=== PATIENT | female | born 1990 | race African-American/Black ===

== ENCOUNTER 2024-07-11 00:05 | Emergency (ER) | payer MEDICAID ==
[~2024-07-11] VITALS: Ht 175.3 cm; Wt 109.0 kg
[2024-07-11 00:55] LABS: Basophils # (auto) 0.1 10 ^3/uL (0-0.2); Eosinophils # (auto) 0.3 10 ^3/uL (0-0.8); Monocytes # (auto) 0.8 10 ^3/uL (0-1.3)
[2024-07-11 00:57] LABS: Basophils % (auto) 0.5 % (0.0-2.0); Eosinophils % (auto) 2.1 % (0.0-7.0); Hematocrit 35.9 % (36.0-46.0); Hemoglobin 11.6 g/dL (12.2-16.2); Lymphocytes # (auto) 3.1 10 ^3/uL (0.4-5.4); Lymphocytes % (auto) 24.2 % (10.0-50.0); Mean Corpuscular Hemoglobin 26.2 pg (28.0-32.0); Mean Corpuscular Hgb Conc. 32.2 g/dL (32.0-36.0); Mean Corpuscular Volume 81.4 fL (80.0-100.0); Monocytes % (auto) 6.2 % (0.0-12.0); Neutrophils # (auto) 8.6 10 ^3/uL (1.6-8.6); Nucleated Red Blood Cells % 0.1 %; Platelet Count (auto) 327 10^3/uL (140-450); Red Blood Cells 4.41 10^6/uL (4.0-5.20); Red Cell Distribution Width 14.9 % (11.8-14.3); White Blood Cell 12.8 10^3/uL (4.4-10.8)
--- NOTE | 2024-07-11 01:12 | ED.PDOC ---
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 Patient is a , lidia roximately 5 weeks . States for the past 2 days she has been having vaginal spotting in mild abdominal cramping. Patient was seen at [facility] 2 days ago, diagnostics done, ultrasound done, was noted of UTI in the started on antibiotics. Persistence of vaginal spotting promptly patient to come back to the emergency room Chief Complaint: Vaginal Bleed Time Seen by MD: 01:11 Reviewed Notes: Nurses Notes Allergies: Coded Allergies: NO KNOWN ALLERGIES (Unverified , 05/17/11) Information Source: Patient Mode of Arrival: Ambulatory Timing: Hours Prehospital treatment: None Severity: Moderate Vaginal Discharge: None Bleeding Quality: Bright Red Onset Of Mass/Bleeding: Spontaneous Sexual Activity: History of: Current Associated Signs and Symptoms: Vaginal Bleeding, Abdominal Pain Past Medical History PAST MEDICAL HISTORY: Denies Surgical History: 3 Para 1 LMP 06/07/2024 Family History Family History: Unknown Social History Smoker: Non-Smoker Alcohol: Denies ETOH Use Drugs: Denies Drug Use Lives In: Home Constitutional: denies: chills, diaphoresis, fatigue, fever, malaise, sweats, weakness, others EENTM: denies: blurred vision, double vision, ear bleeding, ear discharge, ear drainage, ear pain, ear ringing, eye pain, eye redness, hearing loss, mouth pain, mouth swelling, nasal discharge, nose bleeding, nose congestion, nose pain , photophobia, tearing, throat pain, throat swelling, voice changes, others Respiratory: denies: cough, hemoptysis, orthopnea, SOB at rest, shortness of breath, SOB with excertion, stridor, wheezing, others Cardiovascular: denies: chest pain, dizzy spells, diaphoresis, Dyspnea on exertion, edema, irregular heart beat, left arm pain, lightheadedness, palpitations, PND, syncope, others Gastrointestinal: reports: abdominal pain; denies: abdomen distended, blood streaked bowels, constipated, diarrhea, dysphagia, difficulty swallowing, hematemesis, melena, nausea, poor appetite, poor fluid intake, rectal bleeding, rectal pain, vomiting, others Genitourinary: reports: abnormal vagina bleeding; denies: burning, dyspareunia, dysuria, flank pain, frequency, hematuria, incontinence, pain, , vagina discharge, urgency, others Neurological: denies: dizziness, fainting, headache, left sided numbness, left sided weakness, numbness, paresthesia, pre-existing deficit, right sided numbness, right sided weakness, seizure, speech problems, tingling, tremors, weakness, others Musculoskeletal: denies: back pain, gout, joint pain, joint swelling, muscle pain, muscle stiffness, neck pain, others Integumetry: denies: bruises, change in color, change in hair/nails, dryness, laceration, lesions, lumps, rash, wounds, others Allergic/Immunocompromised: denies: Difficulty Healing, Frequent Infections, Hives, Itching, others Hematologic/Lymphatic: denies: anemia, blood clots, easy bleeding, easy bruising, swollen glands, others Endocrine: denies: excessive hunger, excessive sweating, excessive thirst, excessive urination, flushing, intolerance to cold, intolerance to heat, unexplained weight gain, unexplained weight loss, others Psychiatric: denies: anxiety, bipolar disorder, depression, hopeless, panic disorder, schizophrenia, sleepless, suicidal, others Physical Exam General Appearance: No Apparent Distress, Normal HEENT: Normal ENT Inspection, Pharynx Normal, TMs Normal Neck: Full Range of Motion, Non-Tender, Normal, Normal Inspection Respiratory: Chest Non-Tender, Lungs Clear, No Accessory Muscle Use, No Respiratory Distress, Normal Breath Sounds Cardiovascular: No Edema, No JVD, No Murmur, No Gallop, Normal Peripheral Pulses, Regular Rate/Rhythm Breast Exam: Deferred Gastrointestinal: No Organomegaly, Non Tender, No Pulsatile Mass, Normal Bowel Sounds, Soft Genitalia: Deferred Pelvic: Deferred Rectal: Deferred Extremities: No calf tenderness, Normal capillary refill, Normal inspection, Normal range of motion, Non-tender, No pedal edema Musculoskeletal : Apperance: Normal Neurologic: Alert, boiler 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) Vaginal Bleeding: - Inevitable, - Missed, - Threaten ed, Blood Loss Anemia, UTI X-Ray, Labs, Meds, VS Vital Signs Date Time Temp Pulse Resp B/P (MAP) Pulse Ox O2 Delivery O2 Flow Rate FiO2 07/11/24 01:02 97.8 90 16 138/72 (94) 92 97.8 Lab Test 07/11/24 01:05 07/11/24 00:43 Range/Units Urine Color Yellow Yellow Urine Clarity Turbid H Clear Urine pH 6.0 5.0-9.0 Urine Specific [place] 1.030 1.001-1.035 Urine Protein Trace H Negative Urine Ketones Negative Negative Urine Blood 3+ H Negative /uL Urine Nitrite Negative Negative Urine Bilirubin Negative Negative Urine Urobilinogen Normal Negative mg/dL Urine Leukocyte Esterase Negative Negative /uL Urine RBC 5 0 - 4 /hpf Urine Microscopic WBC 7 H 0-5 /HPF Urine Squamous Epithelial Cells Mod <5 /hpf Urine Bacteria None seen None Seen /hpf Urine Mucus Few None Seen Urine Glucose Normal Normal mg/dL White Blood Count 12.8 H 4.4-10.8 10^3/uL Red Blood Count 4.41 4.0-5.20 10^6/uL Hemoglobin 11.6 L 12.2-16.2 g/dL Hematocrit 35.9 L 36.0-46.0 % Mean Corpuscular Volume 81.4 80.0-100.0 fL Mean Corpuscular Hemoglobin 26.2 L 28.0-32.0 pg Mean Corpuscular Hemoglobin Concent 32.2 32.0-36.0 g/dL Red Cell Distribution Width 14.9 H 11.8-14.3 % Platelet Count 327 140-450 10^3/uL Mean Platelet Volume 7.5 6.9-10.8 fL Neutrophils (%) (Auto) 67.0 37.0-80.0 % Lymphocytes (%) (Auto) 24.2 10.0-50.0 % Monocytes (%) (Auto) 6.2 0.0-12.0 % Eosinophils (%) (Auto) 2.1 0.0-7.0 % Basophils (%) (Auto) 0.5 0.0-2.0 % Neutrophils # (Auto) 8.6 1.6-8.6 10 ^3/uL Lymphocytes # (Auto) 3.1 0.4-5.4 10 ^3/uL Monocytes # (Auto) 0.8 0-1.3 10 ^3/uL Eosinophils # (Auto) 0.3 0-0.8 10 ^3/uL Basophils # (Auto) 0.1 0-0.2 10 ^3/uL Nucleated Red Blood Cells 0.1 % Sodium Level 138 136-145 mmol/L Potassium Level 3.8 3.5-5.1 mmol/L Chloride Level 106 98-107 mmol/L Carbon Dioxide Level 23 20-31 mmol/L Anion Gap 9 5-15 Blood Urea Nitrogen 14 9-23 mg/dL Creatinine 0.73 0.550-1.02 mg/dL Glomerular Filtration Rate Calc 110 >90 mL/min BUN/Creatinine Ratio 19.2 10.0-20.0 Serum Glucose 106 74-106 mg/dL Calcium Level 9.0 8.7-10.4 mg/dL Total Bilirubin 0.3 0.2-1.0 mg/dL Aspartate Amino Transferase (AST) 10 L 13-40 U/L Alanine Aminotransferase (ALT) 17 7-40 U/L Alkaline Phosphatase 83 46-116 U/L Total Protein 7.3 5.7-8.2 g/dL Albumin 4.5 3.2-4.8 g/dL Beta HCG, Quantitative 3392.4 H 1.5-4.2 mIU/mL Examination: OB4US -TA/TV CLINICAL INDICATION: vag bleed COMPARISON: None. TECHNIQUE: Transabdominal and transvaginal ultrasound was performed. FINDINGS: Uterus: The uterus is anteverted and measures 9.56 x 7.19 x 8.05 cm. Heterogeneous echotexture noted. Multiple solid fibroids identified, largest measuring 3.32 x 2.78 x 3.40 cm. Endometrial thickness: 1.33 cm. Endometrium appears thickened, heterogeneous. No intrauterine . Ovaries: Right ovary: 3.95 x 1.90 x 3.18 cm (volume 12.9 mL). No focal mass seen. Left ovary: 3.80 x 3.76 x 3.21 cm (volume 24.02 mL). Simple physiological cyst is seen, measuring 1.31 x 1.51 x 1.05 cm. Flow present bilaterally. Nabothian cysts noted. Adnexa: No adnexal mass identified. Adnexa appears unremarkable. Cul-de-sac: No free fluid. IMPRESSION: 1. Endometrium appears thickened, heterogeneous. No intrauterine . 2. Heterogeneous enlarged uterus with multiple fibroids. 3. Simple left ovarian cyst, likely physiological. 4. Nabothian cysts noted. 5. No free fluid. Time of 1ST Reevaluation: 01:08 Reevaluation 1ST: Unchanged Patient Education/Counseling: Diagnosis, Treatment Family Education/Counseling: No Family Present Departure 1 Departure Time of Disposition: 05:06 Impression: Primary Impression: Vaginal bleeding affecting early Disposition: HOME / SELF CARE / HOMELESS Condition: Stable Discharged With: Self Critical Care Note Critical Care Time?: No Stability Stability form required: No Heart Score Heart Score: Heart Score Response (Comments) Value History N/A 0 EKG N/A 0 Age N/A 0 Risk Factors N/A 0 Troponin N/A 0 Total 0 I personally scribed for WONG ANAND MD ([email or web address]) on 07/11/24 at 01:12. Electronically submitted by Lopez Agarwal ([email or web address]). I personally scribed for WONG ANAND MD ([email or web address]) on 07/11/24 at 05:02. Electronically submitted by Lopez Agarwal ([email or web address]). WONG ANAND MD July 11, 2024 01:12
[2024-07-11 01:13] LABS: Alanine Aminotransferase 17 U/L (7-40); Albumin 4.5 g/dL (3.2-4.8); Alkaline Phosphatase 83 U/L (46-116); Anion Gap 9 (5-15); BUN/Creatinine Ratio 19.2 (10.0-20.0); Bilirubin, Total 0.3 mg/dL (0.2-1.0); Blood Urea Nitrogen 14 mg/dL (9-23); Carbon Dioxide 23 mmol/L (20-31); Chloride 106 mmol/L (98-107); Potassium 3.8 mmol/L (3.5-5.1); Sodium 138 mmol/L (136-145); Total Protein 7.3 g/dL (5.7-8.2)
[2024-07-11 01:16] LABS: Aspartate Aminotransferase 10 U/L (13-40); Glucose 106 mg/dL (74-106)
[2024-07-11 01:31] LABS: Urine Bacteria None Seen /hpf (None Seen)
[2024-07-11 01:45] LABS: Urine Blood 3+ /uL (Negative); Urine Clarity Turbid (Clear); Urine Color Yellow (Yellow); Urine Mucus FEW (None Seen); Urine Protein, UAD TRACE (Negative); Urine Squamous Epithelial Cell MOD /hpf (<5); Urine Urobilinogen Normal (Negative); Urine WBC 7 /HPF (0-5)
--- NOTE | 2024-07-11 04:38 | DVH ---
Examination: OB4US -TA/TV CLINICAL INDICATION: vag bleed COMPARISON: None. TECHNIQUE: Transabdominal and transvaginal ultrasound was performed. FINDINGS: Uterus: The uterus is anteverted and measures 9.56 x 7.19 x 8.05 cm. Heterogeneous echotexture noted. Multiple solid fibroids identified, largest measuring 3.32 x 2.78 x 3.40 cm. Endometrial thickness: 1.33 cm. Endometrium appears thickened, heterogeneous. No intrauterine . Ovaries: Right ovary: 3.95 x 1.90 x 3.18 cm (volume 12.9 mL). No focal mass seen. Left ovary: 3.80 x 3.76 x 3.21 cm (volume 24.02 mL). Simple physiological cyst is seen, measuring 1. 31 x 1.51 x 1.05 cm. Flow present bilaterally. Nabothian cysts noted. Adnexa: No adnexal mass identified. Adnexa appears unremarkable. Cul-de-sac: No free fluid. IMPRESSION: 1. Endometrium appears thickened, heterogeneous. No intrauterine . 2. Heterogeneous enlarged uterus with multiple fibroids. 3. Simple left ovarian cyst, likely physiological. 4. Nabothian cysts noted. 5. No free fluid. RECOMMENDATIONS: Recommend BETA HCG monitoring and repeat ultrasound in 7-10 days to assess for evol ving intrauterine . Electronically Signed 07/11/2024 04:36 Kaylynn Conley
[2024-07-11 05:07] VITALS: BP 149/86; PULSE 84; RESP 17; TEMP 98.1; O2SAT 100
== END 2024-07-11 05:45 | disposition home or self-care (01) ==
LOC: ER 00:05
DX: O20.0 Threatened abortion (principal)
CPT/HCPCS: 36415; 76801; 76817; 80053; 81001; 84702; 85025

== ENCOUNTER 2024-07-13 09:34 | Emergency (ER) | payer MEDICAID ==
[~2024-07-13] VITALS: Ht 175.3 cm; Wt 106.4 kg
[2024-07-13 09:52] LABS: Urine Bacteria None Seen /hpf (None Seen)
[2024-07-13 10:01] LABS: Urine Blood Negative /uL (Negative); Urine Clarity Clear (Clear); Urine Color Colorless (Yellow); Urine Protein, UAD Negative (Negative); Urine Specific Gravity 1.006 (1.001-1.035); Urine Squamous Epithelial Cell FEW /hpf (<5); Urine Urobilinogen Normal (Negative); Urine WBC 1 /HPF (0-5); Urine pH 5.5 (5.0-9.0)
--- NOTE | 2024-07-13 10:19 | ED.PDOC ---
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 Patient was seen in this ED on 07/11/24, was told to return in 2 days for repeat HCG levels. She is currently about 5 weeks , P:1. Patient noticed bleeding has slowed down, is currently spotting with no pain or cramping. Denies any PMHx as well as nausea, vomiting, diarrhea, chest pain, shortness of breath, dysuria, dizziness, headache. No other symptoms or modifying factors present at this time. Chief Complaint: Vaginal Bleed Time Seen by MD: 09:40 Reviewed Notes: Medications, Allergies Allergies: Coded Allergies: NO KNOWN ALLERGIES (Unverified , 05/17/11) Information Source: Patient Mode of Arrival: Ambulatory Timing: Days Prehospital treatment: None Severity: Moderate Vaginal Discharge: None Vaginal Lesions: None Bleeding Quality: Bright Red Vaginal Mass: None Onset Of Mass/Bleeding: Spontaneous Sexual Activity: Last Consensual [place]: Unknown Control: None History of: Current Symptoms of Possible : Missed Period Past Medical History PAST MEDICAL HISTORY: Denies Surgical History: MRB ENGINEER History: No Pertinent MRB ENGINEER History Family History Family History: Unknown Social History Smoker: Non-Smoker Alcohol: Denies ETOH Use Drugs: Denies Drug Use Lives In: Home Constitutional: denies: chills, diaphoresis, fatigue, fever, malaise, sweats, weakness, others EENTM: denies: blurred vision, double vision, ear bleeding, ear discharge, ear drainage, ear pain, ear ringing, eye pain, eye redness, hearing loss, mouth pain, mouth swelling, nasal discharge, nose bleeding, nose congestion, nose pain, photophobia, tearing, throat pain, throat swelling, voice changes, others Respiratory: denies: cough, hemoptysis, orthopnea, SOB at rest, shortness of breath, SOB with excertion, stridor, wheezing, others Cardiovascular: denies: chest pain, dizzy spells, diaphoresis, Dyspnea on exertion, edema, irregular heart beat, left arm pain, lightheadedness, palpitations, PND, syncope, others Gastrointestinal: denies: abdomen distended, abdominal pain, blood streaked bowels, constipated, diarrhea, dysphagia, difficulty swallowing, hematemesis, melena, nausea, poor appetite, poor fluid intake, rectal bleeding, rectal pain, vomiting, others Genitourinary: reports: , others (vaginal spotting); denies: abnormal vagina bleeding, burning, dyspareunia, dysuria, flank pain, frequency, hematuria, incontinence, pain, vagina discharge, urgency Neurological: denies: dizziness, fainting, headache, left sided numbness, left sided weakness, numbness, paresthesia, pre-existing deficit, right sided numbness, right sided weakness, seizure, speech problems, tingling, tremors, weakness, others Musculoskeletal: denies: back pain, gout, joint pain, joint swelling, muscle pain, muscle stiffness, neck pain, others Integumetry: denies: bruises, change in color, change in hair/nails, dryness, laceration, lesions, lumps, rash, wounds, others Allergic/Immunocompromised: denies: Difficulty Healing, Frequent Infections, Hives, Itching, others Hematologic/Lymphatic: denies: anemia, blood clots, easy bleeding, easy bruising, swollen glands, others Endocrine: denies: excessive hunger, excessive sweating, excessive thirst, excessive urination, flushing, intolerance to cold, intolerance to heat, unexp lained weight gain, unexplained weight loss, others Psychiatric: denies: anxiety, bipolar disorder, depression, hopeless, panic disorder, schizophrenia, sleepless, suicidal, others All Other Systems: Reviewed and Negative Physical Exam General Appearance: Moderate Distress, Normal HEENT: Normal ENT Inspection, Pharynx Normal, TMs Normal Neck: Full Range of Motion, Non-Tender, Normal, Normal Inspection Respiratory: Chest Non-Tender, Lungs Clear, No Accessory Muscle Use, No Respiratory Distress, Normal Breath Sounds Cardiovascular: No Edema, No JVD, No Murmur, No Gallop, Normal Peripheral Pulses, Regular Rate/Rhythm Breast Exam: Deferred Gastrointestinal: No Organomegaly, Non Tender, No Pulsatile Mass, Normal Bowel Sounds, Soft Genitalia: Deferred Pelvic: Deferred Rectal: Deferred Extremities: No calf tenderness, Normal capillary refill, Normal inspection, Normal range of motion, Non-tender, No pedal edema Musculoskeletal : Apperance: Normal Neurologic: Alert, 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 Diagnosis (MRB ENGINEER) Vaginal Bleeding: - Complete, - Incomplete, - Inevitable, - Missed, - Threatened X-Ray, Labs, Meds, VS Vital Signs Date Time Temp Pulse Resp B/P (MAP) Pulse Ox O2 Delivery O2 Flow Rate FiO2 07/13/24 10:33 63 16 97 Room Air 07/13/24 10:33 98.0 63 16 139/74 (95) 97 98.0 07/13/24 09:43 97.3 76 16 148/74 (98) 97 97.3 Lab Test 07/13/24 10:39 07/13/24 09:41 Range/Units Beta HCG, Quantitative Pending Urine Color Colorless Yellow Urine Clarity Clear Clear Urine pH 5.5 5.0-9.0 Urine Specific [place] 1.006 1.001-1.035 Urine Protein Negative Negative Urine Ketones Negative Negative Urine Blood Negative Negative /uL Urine Nitrite Negative Negative Urine Bilirubin Negative Negative Urine Urobilinogen Normal Negative mg/dL Urine Leukocyte Esterase Negative Negative /uL Urine RBC <1 0 - 4 /hpf Urine Microscopic WBC 1 0-5 /HPF Urine Squamous Epithelial Cells Few <5 /hpf Urine Bacteria None seen None Seen /hpf Urine Glucose Normal Normal mg/dL Patient alert. No sign of any distress. Urinalysis within normal limits. Vitals stable. Answering questions. She denies abdominal cramping. Just spotting. Came for follow up beta hCG. Abdomen is soft nontender. Ambulating without difficulty. Reviewed her previous visit. Explained to the patient. Was told to follow up with her primary care physician. Was told to come back if there is any problem. Time of 1ST Reevaluation: 10:10 Reevaluation 1ST: Improved Patient Education/Counseling: Diagnosis, Treatment, Prognosis Family Education/Counseling: No Family Present Departure 1 Departure Time of Disposition: 11:17 Impression: Primary Impression: Vaginal bleeding affecting early Disposition: 01 HOME / SELF CARE / HOMELESS Condition: Good Discharged With: Self Critical Care Note Critical Care Time?: No Stability Stability form required: No Heart Score Heart Score: Heart Score Response (Comments) Value History N/A 0 EKG N/A 0 Age N/A 0 Risk Factors N/A 0 Troponin N/A 0 Total 0 I personally scribed for MARLENY FREED MD ([email or web address]) on 07/13/24 at 10:18. Electronically submitted by Irma Whelan ([email or web address]). MARLENY FREED MD July 13, 2024 10:18
[2024-07-13 12:10] VITALS: BP 117/78; PULSE 71; RESP 18; TEMP 98.1; O2SAT 96
== END 2024-07-13 12:11 | disposition home or self-care (01) ==
LOC: ER 09:34
DX: O20.9 Hemorrhage in early pregnancy, unspecified (principal); R10.2 Pelvic and perineal pain; Z3A.01 Less than 8 weeks gestation of pregnancy
CPT/HCPCS: 36415; 81001; 84702

== ENCOUNTER 2024-07-20 10:08 | Emergency (ER) | payer MEDICAID ==
[~2024-07-20] VITALS: Ht 175.3 cm; Wt 107.8 kg
--- NOTE | 2024-07-20 10:28 | ED.PDOC ---
History of Present Illness HPI Comments 34-year-old female with PMHx Uterine Fibroids presents with a chief complaint of abnormal vaginal bleeding while being . Patient states that she is 6 weeks . 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 Patient mentions that she was here last week for the same C/C, but reports that the bleeding has intensified and is heavier. Patient also reports nausea, but denies any vomiting. Patient is able to ambulate with steady gait. 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 History: Uterine Fibroids Family History Family History: Reviewed,noncontributory to illness Social History Smoker: Non-Smoker Alcohol: Denies ETOH Use Drugs: Denies Drug Use Lives In: Home Constitutional: denies: chills, diaphoresis, fatigue, fever, malaise, sweats, weakness, others EENTM: denies: blurred vision, double vision, ear bleeding, ear discharge, ear drainage, ear pain, ear ringing, eye pain, eye redness, hearing loss, mouth pain, mouth swelling, nasal discharge, nose bleeding, nose congestion, nose pain, photophobia, tearing, throat pain, throat swelling, voice changes, others Respiratory: denies: cough, hemoptysis, orthopnea, SOB at rest, shortness of breath, SOB with excertion, stridor, wheezing, others Cardiovascular: denies: chest pain, dizzy spells, diaphoresis, Dyspnea on exertion, edema, irregular heart beat, left arm pain, lightheadedness, palpitations, PND, syncope, others Gastrointestinal: reports: nausea; denies: abdomen distended, abdominal pain, blood streaked bowels, constipated, diarrhea, dysphagia, difficulty swallowing, hematemesis, melena, poor appetite, poor fluid intake, rectal bleeding, rectal pain, vomiting, others Genitourinary: reports: abnormal vagina bleeding, ; denies: burning, dyspareunia, dysuria, flank pain, frequency, hematuria, incontinence, pain, vagina discharge, urgency, others Neurological: denies: dizziness, fainting, headache, left sided numbness, left sided weakness, numbness, paresthesia, pre-existing deficit, right sided numbness, right sided weakness, seizure, speech problems, tingling, tremors, weakness, others Musculoskeletal: denies: back pain, gout, joint pain, joint swelling, muscle pain, muscle stiffness, neck pain, others Integumetry: denies: bruises, change in color, change in hair/nails, dryness, laceration, lesions, lumps, rash, wounds, others Allergic/Immunocompromised: denies: Difficulty Healing, Frequent Infections, Hives, Itching, others Hematologic/Lymphatic: denies: anemia, blood clots, easy bleeding, easy bruisi ng, swollen glands, others Endocrine: denies: excessive hunger, excessive sweating, excessive thirst, exce ssive urination, flushing, intolerance to cold, intolerance to heat, unexplained weight gain, unexplained weight loss, others Psychiatric: denies: anxiety, bipolar disorder, depression, hopeless, panic disorder, schizophrenia, sleepless, suicidal, others All Other Systems: Reviewed and Negative Physical Exam General Appearance: No Apparent Distress, Normal HEENT: Normal ENT Inspection, Pharynx Normal, TMs Normal Neck: Full Range of Motion, Non-Tender, Normal, Normal Inspection Respiratory: Chest Non-Tender, Lungs Clear, No Accessory Muscle Use, No Respiratory Distress, Normal Breath Sounds Cardiovascular: No Edema, No JVD, No Murmur, No Gallop, Normal Peripheral Pulses, Regular Rate/Rhythm Breast Exam: Deferred Gastrointestinal: No Organomegaly, Non Tender, No Pulsatile Mass, Normal Bowel Sounds, Soft Genitalia: Deferred Pelvic: Deferred Rectal: Deferred Extremities: No calf tenderness, Normal capillary refill, Normal inspection, Normal range of motion, Non-tender, No pedal edema Musculoskeletal : Apperance: Normal Neurologic: Alert, table tender II-XII 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 Dx Considerations may include: Generalized weakness, threatened , UTI and X-Ray, Labs, Meds, VS Vital Signs Date Time Temp Pulse Resp B/P (MAP) Pulse Ox O2 Delivery O2 Flow Rate FiO2 07/20/24 10:24 98.0 66 15 142/69 (93) 98 98.0 Lab Test 07/20/24 10:45 Range/Units Beta HCG, Quantitative 60409.5 H 1.5-4.2 mIU/mL Pelvic ultrasound shows IMPRESSION: 1. A gestational sac with candidates for possible pole and yolk sac suggestive of very early intrauterine . Correlation with serial beta hCG levels and follow-up pelvic ultrasound is recommended. Cystic structure in the right ovary may reflect corpus luteum cyst. Please note that ectopic with a pseudo gestational sac [place] [address].5 At this time, the patient has been discharge The patient will follow up with the primary care doctor new line the patient will return to the emergency department the condition worsens. Images Reviewed?: Images reviewed and evaluated by me Time of 1ST Reevaluation: 10:49 Reevaluation 1ST: Unchanged Patient Education/Counseling: Diagnosis, Treatment, Prognosis, Need For Follow Up Family Education/Counseling: No Family Present Departure 1 Departure Time of Disposition: 12:52 Impression: Primary Impression: Threatened Disposition: 01 HOME / SELF CARE / HOMELESS Condition: Fair Discharged With: Self Critical Care Note Critical Care Time?: No Stability Stability form required: No Heart Score Heart Score: Heart Score Response (Comments) Value History N/A 0 EKG N/A 0 Age N/A 0 Risk Factors N/A 0 Troponin N/A 0 Total 0 I personally scribed for DONYA REDDY MD ([email or web address]) on 07/20/24 at 10:28. Electronically submitted by Tyler Tolentino ([email or web address]). DONYA REDDY MD Jul 20, 2024 10:28
--- NOTE | 2024-07-20 12:47 | DVH ---
OB ULTRASOUND <14 WEEKS: HISTORY: pain and bleeding TECHNIQUE: Multiple real-time grayscale sonographic images of the pelvis with duplex Doppler color f low, spectral and M-mode analysis. FINDINGS: The uterus measures 11.1 x 7.3 x 8.0 cm. There is a hypoechoic mass in the myometrium measuring 8.2 x 8.1 x 7.3 cm. A gestational sac is identified in the endometrium. Within the gestational sac, there is a very small echogenic structure which may reflect a pole and a small cystic structure possi tiara reflecting a yolk sac. These are both fairly small structures and suboptimally imaged. Right ovary measures 3.2 x 3.1 x 1.9 cm with normal Doppler color flow. There is a cystic structure m easuring 2.0 x 2.0 x 1.3 cm. Left ovary measures 4.7 x 3.2 x 1.9 cm with normal Doppler color flow Nabothian cysts in the cervix. IMPRESSION: 1. A gestational sac with candidates for possible pole and yolk sac suggestive of very early in trauterine . Correlation with serial beta hCG levels and follow-up pelvic ultrasound is gumaro mmended. Cystic structure in the right ovary may reflect corpus luteum cyst. Please note that ectopic with a pseudo gestational sac is not excluded.
[2024-07-20 12:56] VITALS: BP 119/85; TEMP 98.6
[2024-07-20 12:57] VITALS: PULSE 82; RESP 18; O2SAT 98
== END 2024-07-20 12:58 | disposition home or self-care (01) ==
LOC: ER 10:08
DX: O20.0 Threatened abortion (principal); Z98.890 Other specified postprocedural states
CPT/HCPCS: 36415; 76801; 76817; 84702